=== PATIENT | male | born 1990 | race Caucasian/White ===

== ENCOUNTER 2023-01-09 05:09 | Emergency (ER) | payer OTHER ==
[~2023-01-09] VITALS: Ht 177.8 cm; Wt 90.7 kg
[2023-01-09 05:17] VITALS: BP_SYST 155; PULSE 92; RESP 20; TEMP 97.8; O2SAT 98
[2023-01-09] MEDS ORDERED: KETOROLAC TROMETHAMINE 30 MG VIAL IVP ONE (05:30)
[2023-01-09] MEDS ORDERED: ONDANSETRON HCL 4 MG/2 ML VIAL IVP ONE (05:30)
[2023-01-09] MEDS ORDERED: NACL 0.9% 1,000 ML IV ONE (05:30)
[2023-01-09 05:38] LABS: BASOPHILS # (AUTO) 0.1 K/uL (0.0-0.2); BASOPHILS % (AUTO) 0.9 % (0.0-2.0); EOSINOPHILS # (AUTO) 0.1 K/uL (0.0-0.4); EOSINOPHILS % (AUTO) 1.5 % (0.0-4.0); HEMATOCRIT 57.2 % (36-54); HEMOGLOBIN 19.1 g/dL (14.0-18.0); LYMPHOCYTES # (AUTO) 3.2 K/uL (1.0-5.5); LYMPHOCYTES % (AUTO) 41.9 % (20.5-51.5); MEAN CORPUSCULAR HEMOGLOBIN 30 pg (27-31); MEAN CORPUSCULAR HGB CONC 34 % (32-36); MEAN CORPUSCULAR VOLUME 88 fL (79.0-98.0); MONOCYTES # (AUTO) 0.6 K/uL (0.0-1.0); MONOCYTES % (AUTO) 7.3 % (1.7-9.3); NEUTROPHILS # (AUTO) 3.7 K/uL (1.8-7.7); NEUTROPHILS % (AUTO) 48.4 % (40.0-70.0); PLATELET COUNT (AUTO) 285 K/uL (130-430); RED BLOOD CELL COUNT(AUTO) 6.48 MIL/uL (4.2-6.2); RED CELL DISTRIBUTION WIDTH 13.3 % (9.0-15.0); WHITE BLOOD COUNT (AUTO) 7.7 K/uL (4.8-10.8)
[2023-01-09 05:56] LABS: CALCIUM 8.4 mg/dL (8.4-11.0); CREATININE 1.31 mg/dL (0.55-1.30); POTASSIUM 3.6 mmol/L (3.5-5.1)
[2023-01-09 06:00] LABS: ALBUMIN 3.5 g/dL (3.4-4.8); TOTAL BILIRUBIN 1.5 mg/dL (0.0-1.0); TOTAL PROTEIN, SERUM 7.2 g/dL (6.4-8.3)
[2023-01-09 06:58] LABS: INR 1.1 (0.80-1.20)
[2023-01-09 07:05] LABS: BILIRUBIN,URINE NEGATIVE (NEGATIVE); BLOOD, URINE NEGATIVE (NEGATIVE); CLARITY/URINE CLEAR (CLEAR); COLOR,URINE YELLOW (YELLOW); GLUCOSE,URINE 3+ (NEGATIVE); KETONES,URINE NEGATIVE (NEGATIVE); LEUKOCYTE ESTERASE ,URINE NEGATIVE (NEGATIVE); NITRITE, URINE NEGATIVE (NEGATIVE); PH,URINE 5.5 (5.0-8.0); PROTEIN URINE NEGATIVE (NEGATIVE); UROBILINOGEN,URINE 0.2 (0.2-1.0)
[2023-01-09 07:11] LABS: BACTERIA,URINE RARE /HPF (None Seen); MUCUS,URINE 1+ /LPF (None Seen); RBC,URINE 0-3 /HPF (0-3); WBC,URINE 0-3 /HPF (0-3)
[2023-01-09 07:12] LABS: AMYLASE 72 U/L (0-100); LIPASE 199 U/L (73-393)
[2023-01-09 08:05] LABS: ACETONE, SERUM NEGATIVE (NEGATIVE)
[2023-01-09] MEDS ORDERED: AMOX-423 PO (09:19)
[2023-01-09] MEDS ORDERED: IBUP-1971 PO (09:19)
[2023-01-09 09:24] VITALS: BP_SYST 137; PULSE 78; RESP 18; TEMP 97.8; O2SAT 98
== END 2023-01-09 09:24 | disposition home or self-care (01) ==
LOC: SED 05:09
DX: K57.92 Diverticulitis of intestine, part unspecified, without perforation or abscess without bleeding (principal); R10.9 Unspecified abdominal pain; Z79.899 Other long term (current) drug therapy
CPT/HCPCS: 99285; 74176; 96374; 96361; 96375; 80053; 81000; 82009; 82150; 83690; 85025; 85610; 85730; 36415; 93005; 76376; 83605; 82397; J1885; J2405; J7030

== ENCOUNTER 2024-01-20 17:06 | Emergency (ER) | payer SELFPAY ==
[~2024-01-20] VITALS: Ht 167.6 cm; Wt 81.6 kg
[2024-01-20 17:06] VITALS: BP_SYST 173; PULSE 108; RESP 19; TEMP 97; O2SAT 97
[~2024-01-20 17:06] MED LIST: AMOX-423 PO; IBUP-1971 PO
[2024-01-20] MEDS ORDERED: FOLIC ACID 1 MG, THIAMINE HCL 100 MG, MAGNESIUM SULFATE 1 GM, MVI 10 ML in NACL 0.9% 1,... IV ONE (17:30)
[2024-01-20 17:47] LABS: EOSINOPHILS # (AUTO) 0.1 K/uL (0.0-0.4); EOSINOPHILS % (AUTO) 0.6 % (0.0-4.0); MEAN CORPUSCULAR VOLUME 87 fL (79.0-98.0); WHITE BLOOD COUNT (AUTO) 10.3 K/uL (4.8-10.8)
[2024-01-20] MEDS: FOLIC ACID 1 MG, MVI 10 ML in NACL 0.9% 1,000 ML IV ONE (17:59)
[2024-01-20 18:03] LABS: BASOPHILS # (AUTO) 0.1 K/uL (0.0-0.2); BASOPHILS % (AUTO) 1.2 % (0.0-2.0); HEMATOCRIT 53.4 % (36-54); HEMOGLOBIN 18.6 g/dL (14.0-18.0); LYMPHOCYTES % (AUTO) 28.7 % (20.5-51.5); MEAN CORPUSCULAR HEMOGLOBIN 30 pg (27-31); MEAN CORPUSCULAR HGB CONC 35 % (32-36); MONOCYTES # (AUTO) 0.7 K/uL (0.0-1.0); MONOCYTES % (AUTO) 7.2 % (1.7-9.3); NEUTROPHILS # (AUTO) 6.4 K/uL (1.8-7.7); NEUTROPHILS % (AUTO) 62.3 % (40.0-70.0); PLATELET COUNT (AUTO) 264 K/uL (130-430); RED BLOOD CELL COUNT(AUTO) 6.17 MIL/uL (4.2-6.2); RED CELL DISTRIBUTION WIDTH 14.7 % (9.0-15.0)
[2024-01-20 18:05] LABS: ALANINE AMINOTRANSFERASE 64 U/L (12-78); ALBUMIN 3.5 g/dL (3.4-4.8); ANION GAP 12 (5-15); ASPARTATE AMINOTRANSFERASE 60 U/L (10-37); BILIRUBIN,DIRECT 0.4 mg/dL (0.0-0.3); CALCIUM 8.7 mg/dL (8.4-11.0); CARBON DIOXIDE 27 mmol/L (23-29); CHLORIDE 98 mmol/L (98-107); CREATININE 1.33 mg/dL (0.55-1.30); GFR AFRICAN AMERICAN 79 mL/min (>90); GLUCOSE 300 mg/dL (74-106); LIPASE 62 U/L (16-77); SODIUM SERUM 137 mmol/L (136-145); TOTAL BILIRUBIN 1.4 mg/dL (0.0-1.0); UREA NITROGEN, BLOOD 2 mg/dL (8-21)
[2024-01-20] MEDS: THIAMINE HCL 100 MG, MAGNESIUM SULFATE 1 GM in NS 100 ML IV ONE (18:05)
[2024-01-20 18:06] LABS: GFR NON AFRICAN-AMERICAN 65 mL/min (>90)
[2024-01-20 18:07] LABS: ALCOHOL, BLOOD < 3 mg/dL (<10)
[2024-01-20] MEDS: ONDANSETRON HCL 4 MG/2 ML VIAL IVP ONE (18:19)
[2024-01-20] MEDS: LORazepam 2 MG/ML VIAL IVP ONE (18:22)
[2024-01-20] MEDS: DIAZEPAM 10 MG/2 ML DISP.SYRIN IVP ONE (18:34)
[2024-01-20] MEDS ORDERED: chlordiazePOXIDE HCL 25 MG CAPSULE ONE (18:39)
[2024-01-20] MEDS: chlordiazePOXIDE HCL 10 MG CAPSULE PO ONE (18:44)
[2024-01-20] MEDS: chlordiazePOXIDE HCL 25 MG CAPSULE PO ONE (18:44)
[2024-01-20] MEDS: POTASSIUM CHLORIDE 20 MEQ/PKT PACKET PO ONE (20:37)
[2024-01-20] MEDS ORDERED: ONDA-8 TL (20:40)
[2024-01-20] MEDS ORDERED: CHLO10CA7 PO (20:40)
[2024-01-20 20:58] VITALS: BP_SYST 145; PULSE 90; RESP 16; TEMP 97.8; O2SAT 98
[2024-01-20 21:51] LABS: BARBITURATE, URINE NEGATIVE (NEG <=200); BENZODIAZEPINE, URINE NEGATIVE (NEG <=150); COCAINE, URINE NEGATIVE (NEG <=150); METHAMPHETAMINES SCREEN,URINE NEGATIVE (NEG <=500); URINE AMPHETAMINE NEGATIVE (NEG <=500); URINE METHADONE NEGATIVE (NEG <=200)
[2024-01-20 21:52] LABS: CANNABINOID, URINE POSITIVE (NEG <=50); OPIATE, URINE NEGATIVE (NEG <=100); PHENCYCLIDINE SCREEN,URINE NEGATIVE (NEG <=25); UR TRICYCLIC ANTIDEPRESSANTS NEGATIVE (NEG <=300); URINE OXYCODONE SCREEN NEGATIVE (NEG <=100)
== END 2024-01-20 20:58 | disposition home or self-care (01) ==
LOC: SED 17:06
DX: F12.90 Cannabis use, unspecified, uncomplicated (principal); E87.6 Hypokalemia; R11.2 Nausea with vomiting, unspecified; R03.0 Elevated blood-pressure reading, without diagnosis of hypertension; E11.9 Type 2 diabetes mellitus without complications; M79.7 Fibromyalgia; Z79.899 Other long term (current) drug therapy; Z79.2 Long term (current) use of antibiotics
CPT/HCPCS: 99285; 96365; 96366; 96375; 71045; 80307; 80053; 83690; 83735; 85025; 36415; 96368; 80076; G0482; J3490; J2060; J3475; J2405; J3411; J7030; J3360